=== PATIENT | male | born 2000 | race Caucasian/White ===

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

== ENCOUNTER → 2022-04-14 | Outpatient (CLI) | payer OTHER, SELFPAY ==
--- NOTE | 2022-04-14 11:46 | RAD_ITS ---
STUDY: X-RAY - LEFT KNEE REASON FOR EXAM: Male, 22 years old. PAIN TECHNIQUE: 4 view(s) of the knee. COMPARISON: None. FINDINGS: Normal visualized distal femur. Normal visualized proximal tibia and fibula. Normal proximal tibiofibular articulation. Normal medial femorotibial compartment. Normal lateral femorotibial compartment. Normal patellofemoral articulation. The soft tissue structures are unremarkable. RAD/Knee 4 or More Views IMPRESSION: Normal x-ray examination of the knee. Electronically Signed: Rajan Arellano MD at 12:41 EDT ,
== END | disposition home or self-care (01) ==
LOC: MTRAD 11:45
PROVIDERS: PCP Family Medicine; Referring Provider Family Medicine; Visit Provider Family Medicine
DX: M25.562 Pain in left knee (principal)
CPT/HCPCS: 73564

== ENCOUNTER 2022-04-29 09:32 | Outpatient (RCR) | payer OTHER, SELFPAY ==
--- NOTE | 2022-04-29 10:22 | HP.PTEVAL_ITS ---
Patient's Visit Information VITALY GIBBS is a 22 year old M referred to Physical Therapy by Dr. Delano Anderson MD with a diagnosis of L quad sstrengthening. Date of Evaluation: 04/29/22 Physical Therapist: Yong Hoyt, SCARLETTT, OCS, CSCS - Visit Plan Frequency: 1x/Week Duration: 4 Weeks Plan: weekly(keep minimal visits due to poor insurance overage) x 4 weeks as needed. next session check ROM and quad length and progress quad /LE strength to WB as tolerated. Treat with ROM, rollout, quads, stretching - Subjective L knee bothers him and has pain. Started a few months ago. Plays hockey and may have fallen on it or twisted. Falling on L knee hurts alot. pain is central. it is slight when he walks strenuously. sitting is fine. Skating is Ok for the most part. Bending knee to pull off shoe hurts alot. Doctor thinks it was bad bone bruise at first, now x rays were fine. He thinks might have damaged some cartilage. Quad feels weak when tested, does not feel weaker to patient. Pain is up to 6/10 when he falls on it in hockey. Hockey season is starting for [employer] and practices T-F for 1.5 hrs daily and then gets other workout on ice and off ice. Certain exercises bending knee far like a deep squat he tries to avoid and some rotational stuff. Sleep is OK. 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 - Pain L knee Pain Intensity (Out of 10): 0 Pain Intensity Range: 0, 6 - Objective wALKS INTO pt AND TRASNFERS i WITHOUT PAIN. Steps are reciprocal up and down and double steps without pain. marching is not painful. Butt kick walking hurts L knee. Jogs without pain today, sideshuffling is not painful, karika is slightly uncomfortable when pushing with L. AROM L knee0-135 with pain end rang e, R knee 0-140. Quad is mod tight L with hip in extension on L and not on R with some end range pain. hip strength 4+ B. ankel strength 4+ B. Knee strength 4 L quad and painful and 4+ R, HS 4 L and 4+ R, some minor knee pain resisted knee flexion on L. reflexes 1/3 patella and achilles B. Sensation LE WNL to gross light touch. LB AROM WNL and painfree. - varus and valgus. - bounce home. slight + L disco. - patellar grind. questionable anterior drawer on L. All Ok on R. - Balance/Special Test Scores Lower Extremity Functional Score: 59 - Goals Goal 1:: Full aROM L knee without pain including butt kicks walking. Goal Time Frame: 2-4 Weeks Goal 2:: hockey workouts on and off ice without pain Goal Time Frame: 2-4 Weeks Goal 3:: LEFS 80/80 Goal Time Frame: 2-4 Weeks - Rehabilitation Potential Physical Therapy Diagnosis: L knee strain, meniscus vs ACL. Rehabilitation Potential: Good - Anticipated Interventions Patient/Client Instruction: Educate patient on: Condition, Plan of Care For the Purpose of:: To decrease pain, To increase ROM, To improve nutrient delivery to tissue, To improve muscle performance and motor function, To increase tolerance to activity/condition/position Therapeutic Exercise to Include: Strength training, Flexibilty training, Gait and locomotor training, Passive ROM, Active ROM For the Purpose of:: To decrease pain, To increase ROM, To improve muscle performance and motor function, To increase tolerance to activity/condition/position, To improve ability of physical actions for home/community/work/leisure, To improve gait and locomotor functions Manual Therapy Techniques to Include: Mobilization, Passive ROM, Soft tissue mobilization For the Purpose of:: To increase ROM Thank you for the opportunity to evaluate your patient. For Medicare and Medicare HMO plans, please review the plan of care and approve it. It will need to be FAXED BACK to us at [phone] for Medicare purposes. For Medicare only, by signing this I certify the plan of care. Please let me know if there are questions or concerns regarding this plan of care. Physician Signature: Date:
--- NOTE | 2022-06-24 08:00 | HP.PT.NRP ---
VITALY GIBBS was seen in my office for initial evaluation on 04/29/22. The following Plan of Care was established for this patient: Initial Frequency: 1x/Week Initial Duration: 4 Weeks Patient/Client Instruction: Educate patient on: Condition, Plan of Care For the Purpose of:: To decrease pain, To increase ROM, To improve nutrient delivery to tissue, To improve muscle performance and motor function, To increase tolerance to activity/condition/position Therapeutic Exercise to Include: Strength training, Flexibilty training, Gait and locomotor training, Passive ROM, Active ROM For the Purpose of:: To decrease pain, To increase ROM, To improve muscle performance and motor function, To increase tolerance to activity/condition/position, To improve ability of physical actions for home/community/work/leisure, To improve gait and locomotor functions Manual Therapy Techniques to Include: Mobilization, Passive ROM, Soft tissue mobilization For the Purpose of:: To increase ROM This patient was last seen in our office 04/29/22. Pertinent comments regarding their Physical therapy will appear below: Pt seen one visit and POC established. PT did not attend any further visits. at this point, it has been over 6 weeks and I will discontinue due to nonattendance. At this point I will be discontinuing this patient from physical therapy. I would be happy to see this patient again in the future if found appropriate by the physician. Thank you! Yong Hoyt, DPT, OCS, CSCS Balance/Gait/Functional tests - Balance/Special Test Scores Lower Extremity Functional Score: 59
== END 2022-04-29 19:00 | disposition home or self-care (01) ==
LOC: PT 09:32
PROVIDERS: PCP Family Medicine; Referring Provider Family Medicine; Visit Provider Family Medicine
DX: R29.898 Other symptoms and signs involving the musculoskeletal system (principal)
CPT/HCPCS: 97110; 97161